=== PATIENT | male | born 1990 | race Caucasian/White ===

== ENCOUNTER 2023-09-18 10:04 | Emergency (ER) | payer SELFPAY ==
[~2023-09-18] VITALS: Ht 175.3 cm; Wt 75.0 kg
[2023-09-18 10:17] VITALS: O2SAT 97
[2023-09-18] MEDS ORDERED: TETRACAINE 0.5% OPHTH DROPS 4ML BOTHEYE ONE (10:45)
[2023-09-18] MEDS ORDERED: FLUORESCEIN SODIUM 1MG/STRIP RIGHTEYE ONE (10:45)
[2023-09-18 11:11] LABS: BASOPHILS % 0.5 % (0.0-2.0); EOSINOPHILS % 5.5 % (0.0-5.0); HEMATOCRIT. 46.8 % (42.0-52.0); HEMOGLOBIN. 15.2 g/dL (14.0-18.0); MEAN CORPUSCULAR HEMOGLOBIN 29.2 pg (28.0-32.0); MEAN CORPUSCULAR HGB CONC 32.6 g/dL (31.0-37.0); MEAN CORPUSCULAR VOLUME 89.7 fL (80.0-94.0); MEAN PLATELET VOLUME 9.6 fl (7.4-10.4); MONOCYTES % 6.2 % (2.0-8.0); NEUTROPHILS % 69.8 % (40.0-76.0); PLATELET 222 x1000/uL (130-400); RED BLOOD CELL COUNT 5.21 mill/uL (4.7-6.1); RED CELL DISTRIBUTION WIDTH 14.3 % (11.6-14.6); WHITE BLOOD COUNT 10.3 x1000/uL (4.5-11.0)
[2023-09-18 11:23] LABS: CHLORIDE 107 mEq/L (98-107); INDEX HEMOLYSI 1 (1-3); INDEX ICTERIC 1 (1-4); INDEX LIPEMIC 1 (1-3); POTASSIUM 3.8 mEq/L (3.5-5.1); SODIUM 140 mEq/L (136-145)
[2023-09-18 11:30] LABS: ALANINE AMINOTRANSFERASE 23 IU/L (13-61); ALBUMIN 3.9 g/dL (3.4-5.0); ASPARTATE AMINOTRANSFERASE 13 IU/L (15-37); CALCIUM 9.2 mg/dL (8.5-10.1); CARBON DIOXIDE 33 mEq/L (21-32); CREATININE 1.1 mg/dL (0.6-1.3); GLUCOSE 101 mg/dL (70-105); PROTEIN TOTAL 8.1 g/dL (6.0-8.3); UREA NITROGEN BLOOD 12 mg/dL (7-21)
[2023-09-18] MEDS ORDERED: IOHEXOL-300 100 ML BOTTLE ONE (14:20)
[2023-09-18] MEDS ORDERED: AMOX1TAB16 MT (15:07)
[2023-09-18] MEDS ORDERED: MED4 MT (15:07)
[2023-09-18] MEDS ORDERED: ERYT1OIN6 RIGHTEYE (15:07)
[2023-09-18] MEDS ORDERED: OXYM30SP26 BOTHNSTRLS (15:07)
[2023-09-18] MEDS ORDERED: TOBR5DRO2 EACHEYE (15:07)
[2023-09-18 16:34] VITALS: BP 114/78; PULSE 83; RESP 18; TEMP 98
== END 2023-09-18 16:35 | disposition home or self-care (01) ==
LOC: ER 10:04
DX: S02.831A Fracture of medial orbital wall, right side, initial encounter for closed fracture (principal); S02.2XXA Fracture of nasal bones, initial encounter for closed fracture; Z98.890 Other specified postprocedural states; V49.9XXA Car occupant (driver) (passenger) injured in unspecified traffic accident, initial encounter; Y93.89 Activity, other specified; Y92.89 Other specified places as the place of occurrence of the external cause; Y99.8 Other external cause status
CPT/HCPCS: 99285; 70450; 80053; 85025; 36415; 70487; Q9967